=== PATIENT | female | born 1995 | race Caucasian/White ===

== ENCOUNTER 2016-03-31 08:06 | Emergency (ER) | payer OTHER ==
--- NOTE | 2016-03-31 10:16 | ED ORDER SUMMARY ---
..... Patient: ELGIN BROWNE OrderSheet [facility] VisitID: [id number] [address] [place] [address] 20y, F Registration Date/Time: 03/31/2016 ORDER SHEET Weight: 81.1 kg (stated) Allergies: Sulfa Antibiotics GENERAL ORDERS: CBC w Diff Urgent (08:03/31/2016 Mason Harrison) (Ack 8:30 TBergley) (9:05 MWinterer R.N.) BMP Urgent (:03/31/2016 Mason Harrison) (Ack 8:30 TBergley) (9:05 MWinterer R.N.) Pulse oximeter (:03/31/2016 Mason Harrison) (Ack 8:30 TBergley) (8:44 MWinterer R.N.) MEDICATION ORDERS: IV FLUIDS: Pepcid IV 20 mg/50mL (NOW) (08:03/31/2016 Mason Harrison) (Ack 8:45 MWinterer R.N.) (9:08 MWinterer R.N.) Benadryl IV 50 mg (NOW) (08:03/31/2016 Mason Harrison) (Ack 8:45 MWinterer R.N.) (9:06 MWinterer R.N.) Solu-MEDROL IV 125 mg (NOW) (08:03/31/2016 Mason Harrison) (Ack 8:45 MWinterer R.N.) (9:06 MWinterer R.N.) IV Saline Lock (:03/31/2016 Mason Harrison) (Ack 8:45 MWinterer R.N.) (9:06 MWinterer R.N.) ORDER SHEET NOTES: [Electronically signed by Sarai Shi R.N. (10:33 03/31/2016)] [Electronically signed by Andrzej Benoit MD (22:20 04/03/2016)] [Electronically locked/signed by Sarai Shi R.N. (10:33 03/31/2016)]
--- NOTE | 2016-03-31 10:16 | ED CLINICAL REPORT ---
Clinical Report - Physicians/Mid Levels [facility] [address] [place] [address] 03/31/2016 8:08 Patient: ELGIN BROWNE Time Seen: 0820. Arrived- By private vehicle. Historian- patient (mother). CPT: ER phys charges level 4 (#[id number]). HISTORY OF PRESENT ILLNESS Chief Complaint: ALLERGIC REACTION and "HIVES". This started today this morning and is still present and worsening. It was abrupt in onset and has been constant but is not gone now. The patient has had a skin rash, itching and swelling but not had trouble swallowing. No difficulty breathing, dizziness or fainting episodes. No cause has been identified. No recent medication, insect bite or food exposure. Was not recently exposed to poison michel or poison oak. The patient was not assessed by EMS prior to arrival. No treatment prior to arrival. (reports this happened last week. states she has not been exposed to the suspected new detergent, soap, or shampoo bought for her by her fianc.). Similar symptoms previously: Once. Recent medical care: The patient was seen recently by a health care provider. ( Finished up prednisone). REVIEW OF SYSTEMS The patient has had eye problems. No sore throat, cough, sputum production, fever or chills. No joint pain, enlarged lymph nodes, numbness, chest pain or palpitations. No abdominal pain or vomiting. All systems otherwise negative, except as recorded above. PAST HISTORY See nurses notes. Medications: Control Pills. Allergies: Sulfa Antibiotics. SOCIAL HISTORY Never smoker. Occasional alcohol use. No drug use. Recent travel- (goes to school in [place]). Is a local resident. ADDITIONAL NOTES The nursing notes have been reviewed. PHYSICAL EXAM Vital Signs: 03/31/2016 08:12 BP: 125/87. HR: 96. RR: 18. O2 saturation: 97%. Temp: 98.5 F. Pain level now: 0/10. Blood pressure normal. Oxygen saturation normal. Appearance: Alert. Oriented X3. No acute distress. Head and Neck: Normal external inspection. Head: Moderate facial angioedema involving the lower lip. Eyes: Pupils equal, round and reactive to light. ENT: Nose normal. Pharynx normal. Voice normal. Neck: Neck supple. CVS: Normal heart rate and rhythm. Heart sounds normal. Respiratory: No respiratory distress. No respiratory distress. Breath sounds normal. No stridor, wheezes, rales or rhonchi. Abdomen: Nontender. No organomegaly. Skin: No erythema. Extremities: Normal external inspection. Extremities nontender. Skin: Moderate generalized urticaria involving the scalp, face and chest, right upper extremity and left upper extremity. Neuro: Oriented X 3. No motor deficit. No sensory deficit. LABS, X-RAYS, AND EKG Laboratory Tests: CBC w Diff: (DANA: 03/31/2016 08:55) ( MsgRcvd 03/31/2016 09:06) Final results Test Result Flag Units (Reference) WHITE BLOOD COUNT 13.3 H K/uL (4.5-11.5) RED BLOOD COUNT 4.89 M/uL (4.00-5.20) HEMOGLOBIN 14.0 gm/dL (12.0-16.0) HEMATOCRIT 42.1 % (36.0-46.0) MEAN CELL VOLUME 86 fL (80-100) MEAN CORPUSCULAR HGB 29 pg (26-34) MEAN CORPUSCULAR HGB CONC 33 g/dL (31-37) RED CELL DISTRIBUTION WIDTH 12.4 % (11.6-14.8) PLATELET COUNT 233 K/uL (150-400) NEUTROPHIL % 70.8 % (50-75) LYMPH % 23.7 L % (25-40) MONO % 4.6 % (3-14) EOSINOPHIL % 0.6 % (0-4) BASOPHIL % 0.3 % (0-2) BMP: (DANA: 03/31/2016 08:55) ( MsgRcvd 03/31/2016 09:16) Final results Test Result Flag Units (Reference) GLUCOSE 82 mg/dL (70-110) BUN 9 mg/dL (7-18) CREATININE 0.8 mg/dL (0.6-1.3) Estimated GFR >60 mL/min Estimated GFR- >60 mL/min Note: Persistent reduction over 3 months in eGFR<60 mL/min/1.73 m2 defines CKD. Patients with eGFR values>=60 mL/min/1.73 m2 may also have CKD if evidence ofpersistent proteinuria. Additional information may be foundat www.kidney.org. SODIUM 142 mmol/L (136-145) POTASSIUM 4.1 mmol/L (3.5-5.1) CHLORIDE 107 mmol/L (98-107) CARBON DIOXIDE 25 mmol/L (21-32) CALCIUM 8.9 mg/dL (8.5-10.1) . PROGRESS AND PROCEDURES Course of Care: The patient is a 20-year-old female presenting for evaluation of allergic type reaction. Patient similar reaction about a week ago. At this time, patient is unsure of the exposure allergen as she thought she eliminated this from her routine. Medications have been started. Patient is to be signed out to the oncoming physician at the change of shift. 10:11 03/31/16. Pt given meds 1 hours ago and is much better. Facial erythema is nearly resolved. Lip swelling is much better. Throat sensation is gone. There is no wheezing. Still unclear on the allergen. Patient/family counseled. Disposition: Discharged. Condition: stable. CLINICAL IMPRESSION Acute urticaria secondary to allergy. INSTRUCTIONS (Keep all new enviornmental things away from you until diagnosis made.). Warnings: Further evaluation is necessary. GENERAL WARNINGS: Return or contact your physician immediately if your condition worsens or changes unexpectedly, if not improving as expected, or if other problems arise. Your Current Medications: CONTINUE TAKING THE FOLLOWING MEDICATIONS: Control Pills*. Prescription Medications: Pepcid 40 mg: take 1 orally at bedtime. Dispense ten (10). No refills. Substitution is permissible. Prednisone taper 60 mg day 1 then taper by 10 mg a day until off. # adequate amount. OTC Medications: Benadryl Allergy 25 mg (available over the counter): take 1 orally every 6 hours as needed for allergies. Dispense twenty (20). No refill. Substitution is permissible. Follow-up: Follow up with your doctor Saturday in two days. Call for the next available appointment. Understanding of the discharge instructions verbalized by patient and parent. (Electronically signed by Andrzej Benoit MD 04/03/2016 22:20)
--- NOTE | 2016-03-31 10:16 | ED NURSING NOTES ---
Clinical Report - Nurses [facility] [address] [place] [address] 03/31/2016 8:08 Patient: ELGIN BROWNE TRIAGE Acuity: LEVEL 3. Chief Complaint: SKIN RASH. Alert. No acute distress. SEPSIS SCREEN: Sepsis Screen. Negative (no infection suspected/documented). --08:17 Sarai Shi R.N. 08:12 03/31/16. BP: 125/87. HR: 96. RR: 18. O2 saturation: 97% on room air. Temp: 98.5 F (oral). Pain level now: 0/10. --08:17 Sarai Shi R.N. Weight: 81.1 kg stated. Height/Length: 63 inches Per Patient. BMI: 31.7. --08:15 Sarai Shi R.N. Medications Control Pills. --08:14 Sarai Shi R.N. Medication/allergy information source: the patient. --08:17 Sarai Shi R.N. Allergies Sulfa Antibiotics. --08:15 Sarai Shi R.N. History Arrived by private vehicle. Historian: patient. Accompanied by mother. Primary physician (Tammie). Reported as generalized in location and located on the face, abdomen, right arm and left arm. ( Pt reports an allergic reaction to laundry detg 3 weeks ago that caused hives all over her body. She was seen at an urgent care clinic at that time. She was given prednisone. She states it never cleared up entirely, and this am she has increasing hives and itching.). PAST MEDICAL HX: Immunizations: up-to-date. Last normal menstrual period was 1 week ago. SOCIAL HX: Never smoker. Occasional alcohol use. No drug use. FALL RISK ASSESSMENT: Fall risk assessment completed. No fall risk identified. NUTRITIONAL RISK ASSESSMENT: The nutritional risk assessment revealed no deficiencies. FUNCTIONAL ASSESSMENT: Functional assessment: no impairments noted. LEARNING NEEDS ASSESSMENT: The learning needs assessment revealed no barriers. SKIN INTEGRITY ASSESSMENT: Skin integrity risk assessment completed. No skin integrity risk identified. --08: Sarai Shi R.N. Interventions ID band on patient. To treatment room. --08: Sarai Shi R.N. NURSING PROGRESS NOTES 08:03/31/16. Patient gowned. Two patient identifiers checked. Call light placed in reach. Side rails up x 1. Bed placed in lowest position. Brakes of bed on. Patient ready for evaluation- ED physician notified. --08:17 Sarai Shi R.N. 08:56 03/31/2016 Site #1 started via IV in the right antecubital space with an 20g angiocath, with aseptic technique and good blood return; one attempt. Blood drawn: rainbow set. Labeled in the presence of the patient and sent to the lab. Saline lock flushed with 10 mL saline. --09:06 Sarai Shi R.N. 08:56 03/31/2016 SOLU-MEDROL (MethylPREDNISolone Sodium Succ) IVP 125 mg given over 2 minute(s) via site #1. Allergies verified and confirmed 5 rights. IV patency established. IV site checked: no pain, redness, or swelling. IV flushed thoroughly pre- and post-medication administration. IVP given by RN. --09:06 Sarai Shi R.N. 09:01 03/31/2016 Benadryl (DiphenhydrAMINE HCl) IVP 25 mg given over 1 minute(s) via site #1. Allergies verified, confirmed 5 rights and sedative warning given to the patient. IV patency established. IV site checked: no pain, redness, or swelling. IV flushed thoroughly pre- and post-medication administration. IVP given by RN. --09:06 Sarai Shi R.N. 09:08 03/31/2016 Started 20 mg of Pepcid IVPB in bag #1 50 mL; at 100 mL/hr over 30 minute(s) via site #1 via IV pump. Allergies verified and confirmed 5 rights. IV patency established. IV site checked: no pain, redness, or swelling. IV flushed thoroughly pre- and post-medication administration. --09:08 Sarai Shi R.N. 09:24 03/31/16. BP: 116/81. HR: 85. RR: 16. O2 saturation: 100% on room air. Pain level now: 0/10. --09:24 Sarai Shi R.N. 09:25 03/31/2016 Pepcid IVPB Discontinued: bag #1 infused. Total amount infused: 50 mL. IV patency established. IV site checked: no pain, redness, or swelling. IV flushed thoroughly. --09:25 Sarai Shi R.N. 09:25 03/31/16. Reassessment after medication administered. She reports no complaints and she is calm and resting quietly. Overall patient status- she states feels better. --09:25 Sarai Shi R.N. DISPOSITION / DISCHARGE Departure time: 10:20 Mar 31 2016. Condition at departure: improved and stable. No learning barriers present. Discharge instructions provided and reviewed with the patient and parent. Reviewed medication(s) side effects, precautions and dosing information. Prescription(s) given to the patient. Patient and parent verbalized understanding. Written instructions provided in [place]. The patient was discharged by the physician. She was discharged home and accompanied by parent. She left the Emergency Department ambulatory and via private vehicle. Parent driving. --10:31 Sarai Shi R.N. 10:30 03/31/16. BP: 117/76. HR: 101. RR: 20. O2 saturation: 98% on room air. Temp: 98.4 F (oral). Pain level now: 0/10. --10:31 Sarai Shi R.N. 10:17 03/31/2016 Site #1 removed upon discharge. Catheter intact. Manual pressure and bandage applied. --10:32 Sarai Shi R.N. Locked/Released at 03/31/2016 10:33 by Sarai Shi R.N.
--- NOTE | 2016-03-31 10:16 | ED ORDER SUMMARY ---
..... Patient: ELGIN BROWNE OrderSheet [facility] VisitID: [id number] [address] [place] [address] 20y, F Registration Date/Time: 03/31/2016 ORDER SHEET Weight: 81.1 kg (stated) Allergies: Sulfa Antibiotics GENERAL ORDERS: CBC w Diff Urgent (08:03/31/2016 Mason Harrison) (Ack 8:30 TBergley) (9:05 MWinterer R.N.) BMP Urgent (:03/31/2016 Mason Harrison) (Ack 8:30 TBergley) (9:05 MWinterer R.N.) Pulse oximeter (:03/31/2016 Mason Harrsion) (Ack 8:30 TBergley) (8:44 MWinterer R.N.) MEDICATION ORDERS: IV FLUIDS: Pepcid IV 20 mg/50mL (NOW) (08:03/31/2016 Mason Harrison) (Ack 8:45 MWinterer R.N.) (9:08 MWinterer R.N.) Benadryl IV 50 mg (NOW) (08:03/31/2016 Mason Harrison) (Ack 8:45 MWinterer R.N.) (9:06 MWinterer R.N.) Solu-MEDROL IV 125 mg (NOW) (08:03/31/2016 Mason Harrison) (Ack 8:45 MWinterer R.N.) (9:06 MWinterer R.N.) IV Saline Lock (:03/31/2016 Mason Harrison) (Ack 8:45 MWinterer R.N.) (9:06 MWinterer R.N.) ORDER SHEET NOTES: [Electronically signed by Sarai Shi R.N. (10:33 03/31/2016)] [Electronically signed by Andrzej Benoit MD (22:20 04/03/2016)] [Electronically locked/signed by Sarai Shi R.N. (10:33 03/31/2016)]
--- NOTE | 2016-04-03 22:20 | ED DISCHARGE INSTRUCTIONS ---
Patient: ELGIN BROWNE General Instructions [facility] VisitID: [id number] [place] [address] 20y, F Registration Date/Time: 03/31/2016 Acute urticaria secondary to allergy. INSTRUCTIONS (Keep all new enviornmental things away from you until diagnosis made.). Warnings: Further evaluation is necessary. GENERAL WARNINGS: Return or contact your physician immediately if your condition worsens or changes unexpectedly, if not improving as expected, or if other problems arise. Your Current Medications: CONTINUE TAKING THE FOLLOWING MEDICATIONS: Control Pills*. Prescription Medications: Pepcid 40 mg: take 1 orally at bedtime. Dispense ten (10). No refills. Substitution is permissible. Prednisone taper 60 mg day 1 then taper by 10 mg a day until off. # adequate amount. OTC Medications: Benadryl Allergy 25 mg (available over the counter): take 1 orally every 6 hours as needed for allergies. Dispense twenty (20). No refill. Substitution is permissible. Follow-up: Follow up with your doctor Saturday in two days. Call for the next available appointment. Understanding of the discharge instructions verbalized by patient and parent. ADDITIONAL INFORMATION Hives Hives is an itchy red rash that can appear suddenly and move about your body. It goes away in one place and comes back in another. This is usually caused by something that you are allergic to such as: EATING: fruit, shellfish, chocolate, nuts, tomatoes or medicine BREATHING: pollens, animal hair/fur or mold spores Exposure to cold air, sun rays or exercise can sometimes cause an attack. Many times we cannot find a cause. Medicines can be used to reduce itching and swelling. The rash will usually fade over several days, but can sometimes last up to two weeks. Home Care: 1) Do not wear tight clothing and do not take hot baths/showers since heat can make the itching worse. 2) An ice pack (ice cubes in a plastic bag, wrapped in a towel) will reduce local areas of redness and itching. Lanacaine cream or Solarcaine spray (or other product containing "benzocaine") will reduce itching. 3) Oral Benadryl (diphenhydramine) is an antihistamine available at drug and grocery stores. Unless a prescription antihistamine was given, Benadryl may be used to reduce itching if large areas of the skin are involved. Use lower doses during the daytime and higher doses at bedtime since the drug may make you sleepy. [NOTE: Do not use Benadryl if you have glaucoma or if you are a man with trouble urinating due to an enlarged prostate.] Claritin (loratadine) is an antihistamine that causes less drowsiness and is a good alternative for daytime use. 4) If you know what you are sensitive to, avoid this substance. Future reactions could be worse than this one. Follow Up with your doctor as directed by our staff, if symptoms do not begin to improve in two days. If you have had a severe reaction, or have had several episodes of hives, then ask your doctor about allergy testing to find out what you are allergic to. Get Prompt Medical Attention if any of the following occur: -- Trouble breathing or swallowing -- New or increased swelling in the face, lips, tongue or throat -- Dizziness, weakness or fainting Famotidine Oral tablet What is this medicine? FAMOTIDINE (fa JUANA ti gabe) is a type of antihistamine that blocks the release of stomach acid. It is used to treat stomach or intestinal ulcers. It can also relieve heartburn from acid reflux. How should I use this medicine? Take this medicine by mouth with a glass of water. Follow the directions on the prescription label. If you only take this medicine once a day, take it at bedtime. Take your doses at regular intervals. Do not take your medicine more often than directed. Talk to your computer forensic examiner regarding the use of this medicine in children. Special care may be needed. What side effects may I notice from receiving this medicine? Side effects that you should report to your doctor or health school child care attendant as soon as possible: agitation, nervousness confusion hallucinations skin rash, itching Side effects that usually do not require medical attention (report to your doctor or health school child care attendant if they continue or are bothersome): constipation diarrhea dizziness headache What may interact with this medicine? delavirdine itraconazole ketoconazole What if I miss a dose? If you miss a dose, take it as soon as you can. If it is almost time for your next dose, take only that dose. Do not take double or extra doses. Where should I keep my medicine? Keep out of the reach of children. Store at room temperature between 15 and 30 degrees C (59 and 86 degrees F). Do not freeze. Throw away any unused medicine after the expiration date. What should I tell my health care provider before I take this medicine? They need to know if you have any of these conditions: kidney or liver disease trouble swallowing an unusual or allergic reaction to famotidine, other medicines, foods, dyes, or preservatives or trying to get breast-feeding What should I watch for while using this medicine? Tell your doctor or health school child care attendant if your condition does not start to get better or if it gets worse. Finish the full course of tablets prescribed, even if you feel better. Do not take with aspirin, ibuprofen or other antiinflammatory medicines. These can make your condition worse. Do not smoke cigarettes or drink alcohol. These cause irritation in your stomach and can increase the time it will take for ulcers to heal. If you get black, tarry stools or vomit up what looks like coffee grounds, call your doctor or health school child care attendant at once. You may have a bleeding ulcer. Diphenhydramine Tannate Chewable tablet What is this medicine? DIPHENHYDRAMINE (mena murray) is an antihistamine. It is used to treat the symptoms of an allergic reaction. How should I use this medicine? Take this medicine by mouth. Chew it completely before swallowing. Follow the directions on the prescription label. Take your doses at regular intervals. Do not take your medicine more often than directed. Talk to your computer forensic examiner regarding the use of this medicine in children. While this drug may be prescribed for children as young as 6 years old for selected conditions, precautions do apply. Patients over 65 years old may have a stronger reaction and need a smaller dose. What side effects may I notice from receiving this medicine? Side effects that you should report to your doctor or health school child care attendant as soon as possible: allergic reactions like skin rash, itching or hives, swelling of the face, lips, or tongue changes in vision confused, agitated, nervous irregular or fast heartbeat tremor trouble passing urine unusual bleeding or bruising unusually weak or tired Side effects that usually do not require medical attention (report to your doctor or health school child care attendant if they continue or are bothersome): constipation, diarrhea drowsy headache loss of appetite stomach upset, vomiting thick mucous What may interact with this medicine? Do not take this medicine with any of the following medications: MAOIs like Carbex, Eldepryl, Marplan, Nardil, and Parnate This medicine may also interact with the following medications: alcohol barbiturates, like phenobarbital medicines for bladder spasm like oxybutynin, tolterodine medicines for blood pressure medicines for depression, anxiety, or psychotic disturbances medicines for movement abnormalities or Parkinson's disease medicines for sleep other medicines for cold, cough or allergy some medicines for the stomach like chlordiazepoxide, dicyclomine What if I miss a dose? If you miss a dose, take it as soon as you can. If it is almost time for your next dose, take only that dose. Do not take double or extra doses. Where should I keep my medicine? Keep out of the reach of children. Store at room temperature between 15 and 30 degrees C (59 and 86 degrees F). Keep container closed tightly. Throw away any unused medicine after the expiration date. What should I tell my health care provider before I take this medicine? They need to know if you have any of these conditions: glaucoma high blood pressure heart disease liver disease lung or breathing disease, like asthma pain or difficulty passing urine phenylketonuria prostate trouble ulcers or other stomach problems an unusual or allergic reaction to diphenhydramine, sulfites, other medicines foods, dyes, or preservatives or trying to get breast-feeding What should I watch for while using this medicine? Visit your doctor or health school child care attendant for regular check ups. Tell your doctor or healthcare professional if your symptoms do not start to get better or if they get worse. Your mouth may get dry. Chewing sugarless gum or sucking hard candy, and drinking plenty of water may help. Contact your doctor if the problem does not go away or is severe. This medicine may cause dry eyes and blurred vision. If you wear contact lenses you may feel some discomfort. Lubricating drops may help. See your eye doctor if the problem does not go away or is severe. You may get drowsy or dizzy. Do not drive, use machinery, or do anything that needs mental alertness until you know how this medicine affects you. Do not stand or sit up quickly, especially if you are an older patient. This reduces the risk of dizzy or fainting spells. Alcohol may interfere with the effect of this medicine. Avoid alcoholic drinks. You have been given the following additional information: Hives Famotidine Oral tablet Diphenhydramine Tannate Chewable tablet (Electronically signed by Andrzej Benoit MD 04/03/2016 22:20)
--- NOTE | 2016-04-03 22:20 | ED MAR SUMMARY ---
..... Medication Administration [facility] [address] [place] [address] Patient: ELGIN BROWNE Visit ID: [id number] 20y, F Weight: 81.1 kg Height/Length: 63 in BMI: 31.7 ALLERGIES: Sulfa Antibiotics Given 08:56 03/31/2016 Sarai Shi R.N. Medication Administered: SOLU-MEDROL [IVP] (METHYLPREDNISOLONE SODIUM SUCC), Dose: 125 mg IVP over 2 minute(s), Site: #1 right AC. Medication Ordered: Solu-MEDROL IV 125 mg (NOW). Given 09:01 03/31/2016 Sarai Shi R.N. Medication Administered: BENADRYL [IVP] (DIPHENHYDRAMINE HCL), Dose: 25 mg IVP over 1 minute(s), Site: #1 right AC. Medication Ordered: Benadryl IV 50 mg (NOW). Start 09:08 03/31/2016 Sarai Shi R.N., Stop 09:25 03/31/2016 Sarai Shi R.N. Medication Administered: PEPCID [IVPB], Dose: 20 mg IVPB over 30 minute(s), Rate: 100 mL/hr, Dispensed: 50 mL bag, Site: #1 right AC. Medication Ordered: Pepcid IV 20 mg/50mL (NOW).
--- NOTE | 2016-04-03 22:20 | ED MED RECONCILIATION SUMMARY ---
Patient: ELGIN BROWNE Medication Reconciliation Report [facility] VisitID: [id number] [address] [place] [address] 20y, F Registration Date/Time: 03/31/2016 Weight: 81.1 kg Height/Length: 63 in. BMI: 31.7 ALLERGIES: Sulfa Antibiotics The patient's Home Medications are listed below: CONTINUE TAKING THE FOLLOWING MEDICATIONS: Control Pills The source(s) of the original Home Medication information: patient The following Medications were given to the patient in the Emergency Department: SOLU-MEDROL [IVP] IVP 125 mg, administered: 03/31/2016 8:56:00 AM Benadryl [IVP] IVP 25 mg, administered: 03/31/2016 9:01:00 AM Pepcid [IVPB] IVPB bolus 0, then 20 mg 100 mL/hr, administered: 03/31/2016 9:08:00 AM The following Medications were prescribed to the patient: Prednisone taper 60 mg day 1 then taper by 10 mg a day until off. # adequate amount. -- Andrzej Benoit MD Benadryl Allergy 25 mg (available over the counter): take 1 orally every 6 hours as needed for allergies. Dispense twenty (20). No refill. Substitution is permissible. -- Andrzej Benoit MD Pepcid 40 mg: take 1 orally at bedtime. Dispense ten (10). No refills. Substitution is permissible. -- Andrzej Benoit MD
--- NOTE | 2016-04-03 22:20 | ED DISCHARGE INSTRUCTIONS ---
Patient: ELGIN BROWNE General Instructions [facility] VisitID: [id number] [place] [address] 20y, F Registration Date/Time: 03/31/2016 Acute urticaria secondary to allergy. INSTRUCTIONS (Keep all new enviornmental things away from you until diagnosis made.). Warnings: Further evaluation is necessary. GENERAL WARNINGS: Return or contact your physician immediately if your condition worsens or changes unexpectedly, if not improving as expected, or if other problems arise. Your Current Medications: CONTINUE TAKING THE FOLLOWING MEDICATIONS: Control Pills*. Prescription Medications: Pepcid 40 mg: take 1 orally at bedtime. Dispense ten (10). No refills. Substitution is permissible. Prednisone taper 60 mg day 1 then taper by 10 mg a day until off. # adequate amount. OTC Medications: Benadryl Allergy 25 mg (available over the counter): take 1 orally every 6 hours as needed for allergies. Dispense twenty (20). No refill. Substitution is permissible. Follow-up: Follow up with your doctor Saturday in two days. Call for the next available appointment. Understanding of the discharge instructions verbalized by patient and parent. ADDITIONAL INFORMATION Hives Hives is an itchy red rash that can appear suddenly and move about your body. It goes away in one place and comes back in another. This is usually caused by something that you are allergic to such as: EATING: fruit, shellfish, chocolate, nuts, tomatoes or medicine BREATHING: pollens, animal hair/fur or mold spores Exposure to cold air, sun rays or exercise can sometimes cause an attack. Many times we cannot find a cause. Medicines can be used to reduce itching and swelling. The rash will usually fade over several days, but can sometimes last up to two weeks. Home Care: 1) Do not wear tight clothing and do not take hot baths/showers since heat can make the itching worse. 2) An ice pack (ice cubes in a plastic bag, wrapped in a towel) will reduce local areas of redness and itching. Lanacaine cream or Solarcaine spray (or other product containing "benzocaine") will reduce itching. 3) Oral Benadryl (diphenhydramine) is an antihistamine available at drug and grocery stores. Unless a prescription antihistamine was given, Benadryl may be used to reduce itching if large areas of the skin are involved. Use lower doses during the daytime and higher doses at bedtime since the drug may make you sleepy. [NOTE: Do not use Benadryl if you have glaucoma or if you are a man with trouble urinating due to an enlarged prostate.] Claritin (loratadine) is an antihistamine that causes less drowsiness and is a good alternative for daytime use. 4) If you know what you are sensitive to, avoid this substance. Future reactions could be worse than this one. Follow Up with your doctor as directed by our staff, if symptoms do not begin to improve in two days. If you have had a severe reaction, or have had several episodes of hives, then ask your doctor about allergy testing to find out what you are allergic to. Get Prompt Medical Attention if any of the following occur: -- Trouble breathing or swallowing -- New or increased swelling in the face, lips, tongue or throat -- Dizziness, weakness or fainting Famotidine Oral tablet What is this medicine? FAMOTIDINE (fa JUANA ti gabe) is a type of antihistamine that blocks the release of stomach acid. It is used to treat stomach or intestinal ulcers. It can also relieve heartburn from acid reflux. How should I use this medicine? Take this medicine by mouth with a glass of water. Follow the directions on the prescription label. If you only take this medicine once a day, take it at bedtime. Take your doses at regular intervals. Do not take your medicine more often than directed. Talk to your breakfast manager regarding the use of this medicine in children. Special care may be needed. What side effects may I notice from receiving this medicine? Side effects that you should report to your doctor or health career and guidance counselor as soon as possible: agitation, nervousness confusion hallucinations skin rash, itching Side effects that usually do not require medical attention (report to your doctor or health career and guidance counselor if they continue or are bothersome): constipation diarrhea dizziness headache What may interact with this medicine? delavirdine itraconazole ketoconazole What if I miss a dose? If you miss a dose, take it as soon as you can. If it is almost time for your next dose, take only that dose. Do not take double or extra doses. Where should I keep my medicine? Keep out of the reach of children. Store at room temperature between 15 and 30 degrees C (59 and 86 degrees F). Do not freeze. Throw away any unused medicine after the expiration date. What should I tell my health care provider before I take this medicine? They need to know if you have any of these conditions: kidney or liver disease trouble swallowing an unusual or allergic reaction to famotidine, other medicines, foods, dyes, or preservatives or trying to get breast-feeding What should I watch for while using this medicine? Tell your doctor or health career and guidance counselor if your condition does not start to get better or if it gets worse. Finish the full course of tablets prescribed, even if you feel better. Do not take with aspirin, ibuprofen or other antiinflammatory medicines. These can make your condition worse. Do not smoke cigarettes or drink alcohol. These cause irritation in your stomach and can increase the time it will take for ulcers to heal. If you get black, tarry stools or vomit up what looks like coffee grounds, call your doctor or health career and guidance counselor at once. You may have a bleeding ulcer. Diphenhydramine Tannate Chewable tablet What is this medicine? DIPHENHYDRAMINE (mena murray) is an antihistamine. It is used to treat the symptoms of an allergic reaction. How should I use this medicine? Take this medicine by mouth. Chew it completely before swallowing. Follow the directions on the prescription label. Take your doses at regular intervals. Do not take your medicine more often than directed. Talk to your breakfast manager regarding the use of this medicine in children. While this drug may be prescribed for children as young as 6 years old for selected conditions, precautions do apply. Patients over 65 years old may have a stronger reaction and need a smaller dose. What side effects may I notice from receiving this medicine? Side effects that you should report to your doctor or health career and guidance counselor as soon as possible: allergic reactions like skin rash, itching or hives, swelling of the face, lips, or tongue changes in vision confused, agitated, nervous irregular or fast heartbeat tremor trouble passing urine unusual bleeding or bruising unusually weak or tired Side effects that usually do not require medical attention (report to your doctor or health career and guidance counselor if they continue or are bothersome): constipation, diarrhea drowsy headache loss of appetite stomach upset, vomiting thick mucous What may interact with this medicine? Do not take this medicine with any of the following medications: MAOIs like Carbex, Eldepryl, Marplan, Nardil, and Parnate This medicine may also interact with the following medications: alcohol barbiturates, like phenobarbital medicines for bladder spasm like oxybutynin, tolterodine medicines for blood pressure medicines for depression, anxiety, or psychotic disturbances medicines for movement abnormalities or Parkinson's disease medicines for sleep other medicines for cold, cough or allergy some medicines for the stomach like chlordiazepoxide, dicyclomine What if I miss a dose? If you miss a dose, take it as soon as you can. If it is almost time for your next dose, take only that dose. Do not take double or extra doses. Where should I keep my medicine? Keep out of the reach of children. Store at room temperature between 15 and 30 degrees C (59 and 86 degrees F). Keep container closed tightly. Throw away any unused medicine after the expiration date. What should I tell my health care provider before I take this medicine? They need to know if you have any of these conditions: glaucoma high blood pressure heart disease liver disease lung or breathing disease, like asthma pain or difficulty passing urine phenylketonuria prostate trouble ulcers or other stomach problems an unusual or allergic reaction to diphenhydramine, sulfites, other medicines foods, dyes, or preservatives or trying to get breast-feeding What should I watch for while using this medicine? Visit your doctor or health career and guidance counselor for regular check ups. Tell your doctor or healthcare professional if your symptoms do not start to get better or if they get worse. Your mouth may get dry. Chewing sugarless gum or sucking hard candy, and drinking plenty of water may help. Contact your doctor if the problem does not go away or is severe. This medicine may cause dry eyes and blurred vision. If you wear contact lenses you may feel some discomfort. Lubricating drops may help. See your eye doctor if the problem does not go away or is severe. You may get drowsy or dizzy. Do not drive, use machinery, or do anything that needs mental alertness until you know how this medicine affects you. Do not stand or sit up quickly, especially if you are an older patient. This reduces the risk of dizzy or fainting spells. Alcohol may interfere with the effect of this medicine. Avoid alcoholic drinks. You have been given the following additional information: Hives Famotidine Oral tablet Diphenhydramine Tannate Chewable tablet (Electronically signed by Andrzej Benoit MD 04/03/2016 22:20)
--- NOTE | 2016-04-03 22:20 | ED MED RECONCILIATION SUMMARY ---
Patient: ELGIN BROWNE Medication Reconciliation Report [facility] VisitID: [id number] [address] [place] [address] 20y, F Registration Date/Time: 03/31/2016 Weight: 81.1 kg Height/Length: 63 in. BMI: 31.7 ALLERGIES: Sulfa Antibiotics The patient's Home Medications are listed below: CONTINUE TAKING THE FOLLOWING MEDICATIONS: Control Pills The source(s) of the original Home Medication information: patient The following Medications were given to the patient in the Emergency Department: SOLU-MEDROL [IVP] IVP 125 mg, administered: 03/31/2016 8:56:00 AM Benadryl [IVP] IVP 25 mg, administered: 03/31/2016 9:01:00 AM Pepcid [IVPB] IVPB bolus 0, then 20 mg 100 mL/hr, administered: 03/31/2016 9:08:00 AM The following Medications were prescribed to the patient: Prednisone taper 60 mg day 1 then taper by 10 mg a day until off. # adequate amount. -- Andrzej Benoit MD Benadryl Allergy 25 mg (available over the counter): take 1 orally every 6 hours as needed for allergies. Dispense twenty (20). No refill. Substitution is permissible. -- Andrzej Benoit MD Pepcid 40 mg: take 1 orally at bedtime. Dispense ten (10). No refills. Substitution is permissible. -- Andrzej Benoit MD
--- NOTE | 2016-04-03 22:20 | ED MAR SUMMARY ---
..... Medication Administration Record [facility] [address] [place] [address] Patient: ELGIN BROWNE Visit ID: [id number] 20y, F Weight: 81.1 kg Height/Length: 63 in BMI: 31.7 ALLERGIES: Sulfa Antibiotics Given 08:56 03/31/2016 Sarai Shi R.N. Medication Administered: SOLU-MEDROL [IVP] (METHYLPREDNISOLONE SODIUM SUCC), Dose: 125 mg IVP over 2 minute(s), Site: #1 right AC. Medication Ordered: Solu-MEDROL IV 125 mg (NOW). Given 09:01 03/31/2016 Sarai Shi R.N. Medication Administered: BENADRYL [IVP] (DIPHENHYDRAMINE HCL), Dose: 25 mg IVP over 1 minute(s), Site: #1 right AC. Medication Ordered: Benadryl IV 50 mg (NOW). Start 09:08 03/31/2016 Sarai Shi R.N., Stop 09:25 03/31/2016 Sarai Shi R.N. Medication Administered: PEPCID [IVPB], Dose: 20 mg IVPB over 30 minute(s), Rate: 100 mL/hr, Dispensed: 50 mL bag, Site: #1 right AC. Medication Ordered: Pepcid IV 20 mg/50mL (NOW).
== END 2016-03-31 10:20 | disposition home or self-care (01) ==
LOC: ED SRH 08:06
DX: L50.0 Allergic urticaria (principal); Z88.2 Allergy status to sulfonamides
CPT/HCPCS: 90047; 95059